=== PATIENT | female | born 1975 | race Caucasian/White ===

== ENCOUNTER 2018-02-07 23:42 | Emergency (ER) | payer OTHER ==
[2018-02-08 00:25] LABS: Basophils # (A) 0.1 k/uL (0-0.2); Basophils % (A) 1 %; Eosinophils # (A) 0.8 k/uL (0-0.7); Eosinophils % (A) 6 %; HCT 40.9 % (34.0-46.0); HGB 12.9 gm/dL (11.4-16.0); Lymphocytes # (A) 3.2 k/uL (1.0-4.8); Lymphocytes % (A) 23 %; MCH 27.2 pg (25.0-35.0); MCHC 31.4 g/dL (31.0-37.0); MCV 86.4 fL (80.0-100.0); Mean Platelet Volume 6.5; Monocytes # (A) 0.5 k/uL (0-1.0); Monocytes % (A) 3 %; Neutrophils # (A) 9.4 k/uL (1.3-7.7); Neutrophils % (A) 67 %; Platelet Count 474 k/uL (150-450); RBC 4.73 m/uL (3.80-5.40); RDW 14.3 % (11.5-15.5)
[2018-02-08 00:35] LABS: ALT 23 U/L (9-52); AST 16 U/L (14-36); Albumin 4.6 g/dL (3.5-5.0); Alkaline Phosphatase 92 U/L (38-126); Amylase 85 U/L (30-110); Anion Gap 10 mmol/L; Blood Urea Nitrogen 11 mg/dL (7-17); Calcium 10.1 mg/dL (8.4-10.2); Carbon Dioxide 32 mmol/L (22-30); Chloride 100 mmol/L (98-107); Glucose 106 mg/dL (74-99); Lipase 117 U/L (23-300); Potassium 3.5 mmol/L (3.5-5.1); Sodium 142 mmol/L (137-145); Total Bilirubin 0.3 mg/dL (0.2-1.3); Total Protein 8.3 g/dL (6.3-8.2)
[2018-02-08 00:36] LABS: Amorphous Sediment,Urine Rare /hpf; Appearance,Urine Cloudy (Clear); Bilirubin,Urine Negative (Negative); Blood,Urine Negative (Negative); Color,Urine Light Yellow; Glucose,Urine (UA) Negative (Negative); Ketones,Urine Negative (Negative); Leukocyte Esterase,Urine Trace (Negative); Mucus,Urine Rare /hpf; Nitrite,Urine Negative (Negative); PH, Urine 7.5 (5.0-8.0); Protein,Urine Negative (Negative); Specific Gravity,Urine 1.007 (1.001-1.035); Squamous Epithelial Cell,Urine 1 /hpf (0-4); Urobilinogen,Urine <2.0 mg/dL (<2.0); WBC,Urine 2 /hpf (0-5)
[2018-02-08] MEDS ORDERED: KETOROLAC 30 MG/ML 1 ML VIAL IVP STA (00:45)
--- NOTE | 2018-02-08 00:48 | ED ---
Abdominal Pain HPI - General Chief Complaint: Abdominal Pain Stated Complaint: Lef side pain Time Seen by Provider: 02/08/18 00:08 Source: patient Mode of arrival: ambulatory Limitations: no limitations - History of Present Illness Initial Comments: This patient is a 42-year-old woman who presents to be evaluate for left-sided abdominal pain. She states this is been going on for many weeks. She states that it did get worse today and that's why she is being evaluated here. She was working at [employer] today and also drank some water and then became nauseated. Patient describes the pain as severe, like someone is in their digging. She has not noted worsening factors other than the water today. She has not noted relieving factors. There has been no change in urination or bowel movements. Her last bowel movement was last night and was normal. Last period was about 2 weeks ago when she states normal. MD Complaint: abdominal pain -: week(s) Location: LUQ, LLQ Radiation: none Migration to: no migration Severity: severe Quality: other (Like someone's in there is digging) Consistency: constant Improves With: nothing Worsens With: nothing Associated Symptoms: nausea - Related Data LMP (females 10-50): last week Patient : No Previous Rx's Medication Instructions Recorded Famotidine [Pepcid] 20 mg PO BID #14 tablet 02/08/18 Allergies Allergy/AdvReac Type Severity Reaction Status Date / Time No Known Allergies Allergy Verified 02/07/18 23:49 Review of Systems ROS Statement: Those systems with pertinent positive or pertinent negative responses have been documented in the HPI. ROS Other: All systems not noted in ROS Statement are negative. Constitutional: Denies: fever, chills Respiratory: Denies: cough, dyspnea Cardiovascular: Denies: chest pain, palpitations Gastrointestinal: Reports: abdominal pain, nausea. Denies: vomiting, diarrhea, constipation Genitourinary: Denies: dysuria, hematuria, abnormal menses Musculoskeletal: Denies: back pain Skin: Denies: rash Neurological: Denies: headache Hematological/Lymphatic: Denies: easy bleeding Past Medical History Past Medical History: Hypertension History of Any Multi-Drug Resistant Organisms: None Reported Past Surgical History: Orthopedic Surgery, Tubal Ligation Past Psychological History: No Psychological Hx Reported Smoking Status: Current every day smoker Past Alcohol Use History: None Reported Past Drug Use History: None Reported General Exam Limitations: no limitations General appearance: alert, in no apparent distress Head exam: Present: atraumatic, normocephalic Eye exam: Present: normal appearance. Absent: scleral icterus, conjunctival injection ENT exam: Present: normal oropharynx Respiratory exam: Present: normal lung sounds bilaterally. Absent: respiratory distress, wheezes, rales, rhonchi, stridor Cardiovascular Exam: Present: regular rate, normal rhythm, normal heart sounds. Absent: systolic murmur, diastolic murmur, rubs, gallop GI/Abdominal exam: Present: soft, tenderness (There is mild left lower quadrant tenderness without rebound or guarding), normal bowel sounds. Absent: distended , guarding, rebound, rigid, mass, pulsatile mass, hernia Extremities exam: Present: normal inspection, normal capillary refill. Absent: pedal edema, calf tenderness Back exam: Present: normal inspection. Absent: CVA tenderness (R), CVA tenderness (L) Neurological exam: Present: alert Skin exam: Present: warm, dry, intact, normal color. Absent: rash Course Vital Signs 02/07/18 02/08/18 23:45 03:38 Temperature 97.7 F 97.8 F Pulse Rate 71 77 Respiratory 20 18 Rate Blood Pressure 206/105 129/76 O2 Sat by Pulse 99 98 Oximetry Medical Decision Making - Medical Decision Making Patient is a 42-year-old woman with abdominal pain, whose workup is negative other than for a mild leukocytosis and small amount of free fluid on the computed tomography scan. The patient however is feeling clinically better. She does not have tenderness on the reevaluation exam. I did discuss appropriate follow-up including repeat abdominal exam and possibly serial labs and imaging if she is not having improvement. Discussed having immediate reevaluation if there is any recurrence of symptoms or she feels worse in anyway. - Lab Data Result diagrams: 02/08/18 00:14 02/08/18 00:14 Lab Results 02/08/18 02/08/18 02/08/18 Range/Units 00:14 00:14 00:14 WBC 14.0 H (3.8-10.6) k/uL RBC 4.73 (3.80-5.40) m/uL Hgb 12.9 (11.4-16.0) gm/dL Hct 40.9 (34.0-46.0) % MCV 86.4 (80.0-100.0) fL MCH 27.2 (25.0-35.0) pg MCHC 31.4 (31.0-37.0) g/dL RDW 14.3 (11.5-15.5) % Plt Count 474 H (150-450) k/uL Neutrophils % 67 % Lymphocytes % 23 % Monocytes % 3 % Eosinophils % 6 % Basophils % 1 % Neutrophils # 9.4 H (1.3-7.7) k/uL Lymphocytes # 3.2 (1.0-4.8) k/uL Monocytes # 0.5 (0-1.0) k/uL Eosinophils # 0.8 H (0-0.7) k/uL Basophils # 0.1 (0-0.2) k/uL Sodium 142 (137-145) mmol/L Potassium 3.5 (3.5-5.1) mmol/L Chloride 100 (98-107) mmol/L Carbon Dioxide 32 H (22-30) mmol/L Anion Gap 10 mmol/L BUN 11 (7-17) mg/dL Creatinine 0.70 (0.52-1.04) mg/dL Est GFR (CKD-EPI)AfAm >90 (>60 ml/min/1.73 sqM) Est GFR (CKD-EPI)NonAf >90 (>60 ml/min/1.73 sqM) Glucose 106 H (74-99) mg/dL Calcium 10.1 (8.4-10.2) mg/dL Total Bilirubin 0.3 (0.2-1.3) mg/dL AST 16 (14-36) U/L ALT 23 (9-52) U/L Alkaline Phosphatase 92 (38-126) U/L Troponin I (0.000-0.034) ng/mL Total Protein 8.3 H (6.3-8.2) g/dL Albumin 4.6 (3.5-5.0) g/dL Amylase 85 (30-110) U/L Lipase 117 (23-300) U/L Urine Color Urine Appearance (Clear) Urine pH (5.0-8.0) Ur Specific [place] (1.001-1.035) Urine Protein (Negative) Urine Glucose (UA) (Negative) Urine Ketones (Negative) Urine Blood (Negative) Urine Nitrite (Negative) Urine Bilirubin (Negative) Urine Urobilinogen (<2.0) mg/dL Ur Leukocyte Esterase (Negative) Urine WBC (0-5) /hpf Ur Squamous Epith Cells (0-4) /hpf Amorphous Sediment (None) /hpf Urine Mucus (None) /hpf Urine HCG, Qual Not Detected (Not Detectd) 02/08/18 02/08/18 Range/Units 00:14 00:14 WBC (3.8-10.6) k/uL RBC (3.80-5.40) m/uL Hgb (11.4-16.0) gm/dL Hct (34.0-46.0) % MCV (80.0-100.0) fL MCH (25.0-35.0) pg MCHC (31.0-37.0) g/dL RDW (11.5-15.5) % Plt Count (150-450) k/uL Neutrophils % % Lymphocytes % % Monocytes % % Eosinophils % % Basophils % % Neutrophils # (1.3-7.7) k/uL Lymphocytes # (1.0-4.8) k/uL Monocytes # (0-1.0) k/uL Eosinophils # (0-0.7) k/uL Basophils # (0-0.2) k/uL Sodium (137-145) mmol/L Potassium (3.5-5.1) mmol/L Chloride (98-107) mmol/L Carbon Dioxide (22-30) mmol/L Anion Gap mmol/L BUN (7-17) mg/dL Creatinine (0.52-1.04) mg/dL Est GFR (CKD-EPI)AfAm (>60 ml/min/1.73 sqM) Est GFR (CKD-EPI)NonAf (>60 ml/min/1.73 sqM) Glucose (74-99) mg/dL Calcium (8.4-10.2) mg/dL Total Bilirubin (0.2-1.3) mg/dL AST (14-36) U/L ALT (9-52) U/L Alkaline Phosphatase (38-126) U/L Troponin I <0.012 (0.000-0.034) ng/mL Total Protein (6.3-8.2) g/dL Albumin (3.5-5.0) g/dL Amylase (30-110) U/L Lipase (23-300) U/L Urine Color Light Yellow Urine Appearance Cloudy H (Clear) Urine pH 7.5 (5.0-8.0) Ur Specific [place] 1.007 (1.001-1.035) Urine Protein Negative (Negative) Urine Glucose (UA) Negative (Negative) Urine Ketones Negative (Negative) Urine Blood Negative (Negative) Urine Nitrite Negative (Negative) Urine Bilirubin Negative (Negative) Urine Urobilinogen <2.0 (<2.0) mg/dL Ur Leukocyte Esterase Trace H (Negative) Urine WBC 2 (0-5) /hpf Ur Squamous Epith Cells 1 (0-4) /hpf Amorphous Sediment Rare H (None) /hpf Urine Mucus Rare H (None) /hpf Urine HCG, Qual (Not Detectd) Disposition Clinical Impression: Abdominal pain Disposition: HOME SELF-CARE Condition: Good Instructions: Abdominal Pain (ED) Prescriptions: Famotidine [Pepcid] 20 mg PO BID #14 tablet Is patient prescribed a controlled substance at d/c from ED?: No Referrals: Samanta Russo MD [Primary Care Provider] - 1-2 days Aaron Coulter MD [STAFF PHYSICIAN] - 1-2 days
--- NOTE | 2018-02-08 00:48 | XR ---
EXAMINATION TYPE: XR KUB DATE OF EXAM: 02/08/2018 COMPARISON: NONE HISTORY: Abdominal pain TECHNIQUE: 2 views upright FINDINGS: Bowel gas pattern is normal. There is no sign of intestinal obstruction or pneumoperitoneum . Fecal pattern is normal. There are no pathologic calcifications over the kidneys. Lung bases are cl ear. IMPRESSION: Nonacute abdomen.
[2018-02-08] MEDS ORDERED: ONDANSETRON 4 MG/2 ML VIAL IVP STA (00:59)
--- NOTE | 2018-02-08 01:20 | CT ---
EXAMINATION TYPE: CT abdomen pelvis wo con DATE OF EXAM: 02/08/2018 COMPARISON: None HISTORY: Left side abdominal pain CT DLP: 616 mGycm Automated exposure control for dose reduction was used. TECHNIQUE: Helical acquisition of images was performed from the lung bases through the pelvis. FINDINGS: Lung bases are clear. There is no pleural effusion. Heart size is normal. Liver spleen pancreas gallbladder appear normal. Bile ducts are not dilated. There is no adrenal mass. Stomach is large. Kidneys show normal size and contour. There is no hydrone phrosis. There is no retroperitoneal adenopathy. There is small amount of free fluid in the [place]. Uterus is large with multiple fibroids. Urinary bladder appears normal. I see no intestinal wall t hickening. There are no dilated loops. There is some retained fecal material in the right colon. Bony structures appear intact. IMPRESSION: MILD CONSTIPATION. NO RENAL STONE OR OBSTRUCTION. APPENDIX IS NOT SEEN. NO SIGN OF APPENDICITIS. MILD FREE FLUID IN THE PELVIS. ENLARGED FIBROID UTERUS. Large stomach could relate to gastroparesis.
[2018-02-08] MEDS ORDERED: MAG HYDROX/AL HYDROX/SIMETH 30 ML, HYOSCYAMINE ELIXIR 10 ML, CIMETIDINE HCL 300 MG, LID... PO STA ×4 (01:35)
[2018-02-08 03:39] VITALS: BP 129/76; PULSE 77; RESP 18; TEMP 97.8
== END 2018-02-08 04:00 | disposition home or self-care (01) ==
LOC: EC 23:42
DX: R10.12 Left upper quadrant pain (principal); R10.32 Left lower quadrant pain; R11.0 Nausea; D72.829 Elevated white blood cell count, unspecified; F17.200 Nicotine dependence, unspecified, uncomplicated; Z98.51 Tubal ligation status
CPT/HCPCS: 99284; 96374; 96375; 36415; 93005; 80053; 82150; 83690; 84484; 85025; 81001; 81025; 74018; 74176; J2405; J1885

== ENCOUNTER 2023-07-23 19:01 | Emergency (ER) | payer OTHER ==
--- NOTE | 2023-07-23 19:21 | ED ---
Skin/Abscess/FB HPI - General Chief complaint: Skin/Abscess/Foreign Body Stated complaint: Abcess R side of neck Time Seen by Provider: 07/23/23 19:19 Source: patient, family, RN notes reviewed Mode of arrival: ambulatory Limitations: no limitations - History of Present Illness Initial comments: Patient is a 48-year-old female presenting to the ER with a chief complaint of an abscess. Patient states she has had an abscess on her right shoulder for about 3 days. She denies any drainage. Denies any fevers, chills, night sweats. Patient states that his painful to touch and has been keeping it covered with a Band-Aid. Denies any chest pain, shortness of breath, abdominal pain, urinary symptoms, peripheral edema. - Related Data Previous Rx's Medication Instructions Recorded Famotidine [Pepcid] 20 mg PO BID #14 tablet 02/08/18 Cephalexin [Keflex] 500 mg PO Q6HR #40 cap 07/23/23 Sulfamethox-Tmp 800-160Mg [Bactrim 1 each PO Q12HR #20 tab 07/23/23 Ds] Allergies Allergy/AdvReac Type Severity Reaction Status Date / Time No Known Allergies Allergy Verified 02/07/18 23:49 Review of Systems ROS Statement: Those systems with pertinent positive or pertinent negative responses have been documented in the HPI. ROS Other: All systems not noted in ROS Statement are negative. Past Medical History Past Medical History: Hypertension History of Any Multi-Drug Resistant Organisms: None Reported Past Surgical History: Orthopedic Surgery, Tubal Ligation Past Psychological History: No Psychological Hx Reported Smoking Status: Current every day smoker Past Alcohol Use History: None Reported Past Drug Use History: None Reported General Exam Limitations: no limitations General appearance: alert, in no apparent distress Head exam: Present: atraumatic, normocephalic, normal inspection Eye exam: Present: normal appearance, PERRL, EOMI. Absent: scleral icterus, conjunctival injection, periorbital swelling Neck exam: Present: normal inspection. Absent: tenderness, meningismus, lymphadenopathy Respiratory exam: Present: normal lung sounds bilaterally. Absent: respiratory distress, wheezes, rales, rhonchi, stridor Cardiovascular Exam: Present: regular rate, normal rhythm, normal heart sounds. Absent: systolic murmur, diastolic murmur, rubs, gallop, clicks Neurological exam: Present: alert, oriented X3, CN II-XII intact Psychiatric exam: Present: normal affect, normal mood Skin exam: Present: warm, dry, intact, normal color, other (Fluctuant area with surrounding erythema to right trapezius muscle/shoulder. No purulent drainage present.). Absent: rash Course Vital Signs 07/23/23 19:03 Temperature 98.2 F Pulse Rate 96 Respiratory 16 Rate Blood Pressure 175/108 O2 Sat by Pulse 99 Oximetry Procedures - Incision & Drainage Consent Obtained: verbal consent Indication: abscess Site: back Anesthetic Used: lidocaine 1% Amount (mLs): 5 I&D Cleaning Method: Alcohol Wipe Sterile Field Used?: Yes Scalpel Used: #11 Ultrasound used: No Needle Aspiration Performed?: No I&D Drainage Obtained: Pus, Blood Loculation Noted: probing needed to break Insertion of drain: No Culture Obtained?: Yes Patient Tolerated Procedure: well, no complications Medical Decision Making - Medical Decision Making Was pt. sent in by a medical professional or institution (ELVI Hardwick, FACTORY MAINTENANCE TECHNICIAN, urgent care, hospital, or fpc...) When possible be specific @ -No Did you speak to anyone other than the patient for history (EMS, parent, family, police, friend...)? What history was obtained from this source @ -No Did you review nursing and triage notes (agree or disagree)? Why? @ -I reviewed and agree with nursing and triage notes Were old charts reviewed (outside hosp., previous admission, EMS record, old EKG, old radiological studies, urgent care reports/EKG's, fpc records)? Report findings @ -No old charts were reviewed Differential Diagnosis (chest pain, altered mental status, abdominal pain women, abdominal pain men, vaginal bleeding, weakness, fever, dyspnea, syncope, headache, dizziness, GI bleed, back pain, seizure, CVA, palpatations, mental health, musculoskeletal)? @ -Cellulitis, abscess, abrasion, cyst, acne this list is not meant to be all- inclusive EKG interpreted by me (3pts min.). @ -None X-rays interpreted by me (1pt min.). @ -None done CT interpreted by me (1pt min.). @ -None done U/S interpreted by me (1pt. min.). @ -None done What testing was considered but not performed or refused? (CT, X-rays, U/S, labs)? Why? @ -None What meds were considered but not given or refused? Why? @ -None Did you discuss the management of the patient with other professionals (professionals i.e. , PA, FACTORY MAINTENANCE TECHNICIAN, lab, RT, psych nurse, older adult social work specialist, teacher visually impaired, teacher, chairman and chief executive officer, briefcase sewer)? Give summary @ -No Was smoking cessation discussed for >3mins.? @ -No Was critical care preformed (if so, how long)? @ -No Were there social determinants of health that impacted care today? How? (Homelessness, low income, unemployed, alcoholism, drug addiction, transportatio n, low edu. Level, literacy, decrease access to med. care, penitentiary, rehab)? @ -No Was there de-escalation of care discussed even if they declined (Discuss DNR or withdrawal of care, Hospice)? DNR status @ -No What co-morbidities impacted this encounter? (DM, HTN, Smoking, COPD, CAD, Cancer, CVA, ARF, Chemo, Hep., AIDS, mental health diagnosis, sleep apnea, morbid obesity)? @ -None Was patient admitted / discharged? Hospital course, mention meds given and route, prescriptions, significant lab abnormalities, going to OR and other pertinent info. @ -Discharge. Patient is a 48-year-old female presenting to the ER with chief complaint of back abscess. Denies any fevers or chills. History and physical exam were completed. Vitals stable. There is a 5 cm fluctuant abscess on patient's back. No signs of acute distress lung sounds clear to auscultation bilaterally. Abscess was numbed using lidocaine and a drainage hole was made using an 11 blade scalpel. Bloody and purulent drainage from abscess. Patient tolerated procedure well. Patient prescribed Bactrim and Keflex. Educated patient on importance of completing full course of antibiotics. Return parameters were discussed. Patient be discharged stable condition follow-up to PCP. Patient expressed understanding and agreement care plan. Undiagnosed new problem with uncertain prognosis? @ -No Drug Therapy requiring intensive monitoring for toxicity (Heparin, Nitro, Insulin, Cardizem)? @ -No Were any procedures done? @ -Yes Diagnosis/symptom? @ -Abscess Acute, or Chronic, or Acute on Chronic? @ -Acute Uncomplicated (without systemic symptoms) or Complicated (systemic symptoms)? @ -uncomplicated Side effects of treatment? @ -No Exacerbation, Progression, or Severe Exacerbation? @ -No Poses a threat to life or bodily function? How? (Chest pain, [place], [place], pneumonia, PE, COPD, DKA, ARF, appy, cholecystitis, CVA, Diverticulitis, Homicidal, Suicidal, threat to staff... and all critical care pts) @ -No Disposition Clinical Impression: Abscess Disposition: HOME SELF-CARE Condition: Stable Instructions (If sedation given, give patient instructions): Abscess Incision and Drainage (ED), Abscess (ED) Additional Instructions: Please complete full course of antibiotics. Follow-up with PCP. Return to ER for new or worsening symptoms. Prescriptions: Sulfamethox-Tmp 800-160Mg [Bactrim Ds] 1 each PO Q12HR #20 tab Cephalexin [Keflex] 500 mg PO Q6HR #40 cap Is patient prescribed a controlled substance at d/c from ED?: No Referrals: Samanta Coelho MD [Primary Care Provider] - 1-2 days Time of Disposition: 20:16
[2023-07-23 19:29] VITALS: BP 175/108; PULSE 96; RESP 16; TEMP 98.2
[2023-07-23] MEDS: LIDOCAINE 1% INJ 10MG/ML (20 ML MDV) SQ ONE (19:38)
== END 2023-07-23 20:30 | disposition home or self-care (01) ==
LOC: EC 19:01
DX: L02.212 Cutaneous abscess of back [any part, except buttock and flank] (principal); I10 Essential (primary) hypertension; F17.200 Nicotine dependence, unspecified, uncomplicated
CPT/HCPCS: 87070; 87205; 10060; 99282; J2001

== ENCOUNTER 2023-09-14 02:07 | Emergency (ER) | payer OTHER ==
[2023-09-14 02:35] VITALS: RESP 18
[2023-09-14] MEDS: ONDANSETRON 4 MG/2 ML VIAL IVP STA (02:56)
[2023-09-14] MEDS: KETOROLAC 15 MG/ML 1 ML VIAL IVP STA (02:57)
[2023-09-14] MEDS: SODIUM CHLORIDE 0.9% 1,000 ML IV STA (03:02)
[2023-09-14 03:27] LABS: ALT 16 U/L (4-34); AST 23 U/L (14-36); African American GFR (CKD) >90 (>60 ml/min/1.73 sqM); Albumin 4.7 g/dL (3.5-5.0); Alkaline Phosphatase 108 U/L (38-126); Amylase 80 U/L (30-110); Anion Gap 13 mmol/L; Blood Urea Nitrogen 13 mg/dL (7-17); Calcium 9.3 mg/dL (8.4-10.2); Carbon Dioxide 19 mmol/L (22-30); Chloride 108 mmol/L (98-107); Glucose 108 mg/dL (74-99); Lipase 107 U/L (23-300); Non-African American GFR(CKD) >90 (>60 ml/min/1.73 sqM); Potassium 3.9 mmol/L (3.5-5.1); Sodium 140 mmol/L (137-145); Total Bilirubin 0.4 mg/dL (0.2-1.3); Total Protein 8.2 g/dL (6.3-8.2)
--- NOTE | 2023-09-14 03:45 | ED ---
Abdominal Pain HPI - General Source: patient Mode of arrival: wheelchair Limitations: no limitations <Franklin Lund - Last Filed: 09/14/23 04:11> <Maria Dolores Rojas - Last Filed: 09/14/23 08:28> - General Chief Complaint: Abdominal Pain Stated Complaint: abd pain Time Seen by Provider: 09/14/23 02:21 - History of Present Illness Initial Comments: 48-year-old female presenting to the ED with complaints of flank pain. Patient states all day her right flank has been hurting however tonight woke up with left flank pain. Does note some associated nausea with this. Denies dysuria, hematuria, frequency, urgency. Denies changes in bowel habits. No fever or chills. No chest pains or shortness of breath. No other complaints at this time. (Franklin Lund) - Related Data Previous Rx's Medication Instructions Recorded Famotidine [Pepcid] 20 mg PO BID #14 tablet 02/08/18 Cephalexin [Keflex] 500 mg PO Q6HR #40 cap 07/23/23 Sulfamethox-Tmp 800-160Mg [Bactrim 1 each PO Q12HR #20 tab 07/23/23 Ds] HYDROcodone/APAP 5-325MG [[place] 1 tab PO Q6HR PRN 3 Days #12 tab 09/14/23 5-325] Ondansetron Odt [Zofran Odt] 4 mg PO Q8HR PRN #12 tab 09/14/23 Tamsulosin [Flomax] 0.4 mg PO DAILY 7 Days #7 cap 09/14/23 Allergies Allergy/AdvReac Type Severity Reaction Status Date / Time No Known Allergies Allergy Verified 09/14/23 02:09 Review of Systems ROS Other: All systems not noted in ROS Statement are negative. <Franklin Lund - Last Filed: 09/14/23 04:11> ROS Other: All systems not noted in ROS Statement are negative. <Maria Dolores Rojas - Last Filed: 09/14/23 08:28> ROS Statement: Those systems with pertinent positive or pertinent negative responses have been documented in the HPI. Past Medical History Past Medical History: Hypertension History of Any Multi-Drug Resistant Organisms: ESBL, MRSA Date of last positivie culture/infection: 07/23/23 MRSA & ESBL MDRO Source:: Right Shoulder Past Surgical History: Orthopedic Surgery, Tubal Ligation Past Psychological History: No Psychological Hx Reported Smoking Status: Current every day smoker Past Alcohol Use History: None Reported Past Drug Use History: Marijuana <KeovnFranklin - Last Filed: 09/14/23 04:11> General Exam Limitations: no limitations General appearance: alert, in no apparent distress Neck exam: Present: normal inspection Respiratory exam: Present: normal lung sounds bilaterally Cardiovascular Exam: Present: regular rate, normal rhythm GI/Abdominal exam: Present: soft, normal bowel sounds, other (No CVA tenderness palpation bilaterally. Does note some pain of the lower lumbar paraspinal area.). Absent: distended, tenderness, guarding, rebound, rigid Neurological exam: Present: alert, oriented X3 Skin exam: Present: warm, dry <Franklin Lund - Last Filed: 09/14/23 04:11> Course Vital Signs 09/14/23 09/14/23 02:08 04:03 Temperature 97.4 F L Pulse Rate 68 98 Respiratory 18 18 Rate Blood Pressure 218/121 149/87 O2 Sat by Pulse 100 99 Oximetry Medical Decision Making - Lab Data Result diagrams: 09/14/23 03:01 <Franklin Lund - Last Filed: 09/14/23 04:11> - Lab Data Result diagrams: 09/14/23 03:01 09/14/23 03:01 <Maria Dolores Rojas - Last Filed: 09/14/23 08:28> - Medical Decision Making Was pt. sent in by a medical professional or institution ([facility], ENGRAVER MACHINE, urgent care, hospital, or intermediate...) When possible be specific @ -No Did you speak to anyone other than the patient for history (EMS, parent, family, police, friend...)? What history was obtained from this source @ -No Did you review nursing and triage notes (agree or disagree)? Why? @ -I reviewed and agree with nursing and triage notes Were old charts reviewed (outside hosp., previous admission, EMS record, old EKG, old radiological studies, urgent care reports/EKG's, intermediate records)? Report findings @ -No old charts were reviewed Differential Diagnosis (chest pain, altered mental status, abdominal pain women, abdominal pain men, vaginal bleeding, weakness, fever, dyspnea, syncope, headache, dizziness, GI bleed, back pain, seizure, CVA, palpatations, mental health, musculoskeletal)? @ -Differential Abdominal Pain Women: Appendicitis, Cholecystitis, diverticulosis, ischemic bowel, pancreatitis, hepatitis, UTI, gastroenteritis, AAA, incarcerated hernia, bowel obstruction, constipation, inflammatory bowel, hepatitis, peptic ulcer disease, splenic infarction, perforated viscus, vulvitis, ovarian torsion, PID, kidney stone, placenta abruption, this is not meant to be an all-inclusive list EKG interpreted by me (3pts min.). @ -None X-rays interpreted by me (1pt min.). @ -None done CT interpreted by me (1pt min.). @ -Pending U/S interpreted by me (1pt. min.). @ -None done What testing was considered but not performed or refused? (CT, X-rays, U/S, labs)? Why? @ -None What meds were considered but not given or refused? Why? @ -None Did you discuss the management of the patient with other professionals (professionals i.e. , PA, ENGRAVER MACHINE, lab, RT, psych nurse, social science instructor, skip loader, teacher, chief clinical officer, medical case manager)? Give summary @ -No Was smoking cessation discussed for >3mins.? @ -No Was critical care preformed (if so, how long)? @ -No Were there social determinants of health that impacted care today? How? (Homelessness, low income, unemployed, alcoholism, drug addiction, transportation, low edu. Level, literacy, decrease access to med. care, assisted, rehab)? @ -No Was there de-escalation of care discussed even if they declined (Discuss DNR or withdrawal of care, Hospice)? DNR status @ -No What co-morbidities impacted this encounter? (DM, HTN, Smoking, COPD, CAD, Cancer, CVA, ARF, Chemo, Hep., AIDS, mental health diagnosis, sleep apnea, mo rbid obesity)? @ -None Was patient admitted / discharged? Hospital course, mention meds given and r oute, prescriptions, significant lab abnormalities, going to OR and other pertinent info. @ -Pending Patient presented to the ED with complaints of flank pain. Patient states that she has had ongoing pain on the right side of her abdomen/back however tonight woke up with acute onsets of left sided abdominal/back pain with associated nausea. At this time laboratory studies and imaging are pending and case signed out to my attending physician, Dr. Rojas, for further disposition. (Franklin Lund) Was patient admitted / discharged? Hospital course, mention meds given and route, prescriptions, significant lab abnormalities, going to OR and other pertinent info. @ -Care was signed out to me by Morgan CT was pending. Patient presented with flank pain CT does reveal a 7 mm x 4 mm x 6 mm stone. Patient had been treated with Toradol and was given a single dose of morphine and upon reevaluation she is resting comfortably. I discussed this position options including observation for intractable pain versus discharge home. Patient would prefer discharge home. She will be prescribed Zofran Flomax and [place] for symptom management. Undiagnosed new problem with uncertain prognosis? @ -No Drug Therapy requiring intensive monitoring for toxicity (Heparin, Nitro, Insulin, Cardizem)? @ -No Were any procedures done? @ -No Diagnosis/symptom? @ -Kidney stone Acute, or Chronic, or Acute on Chronic? @ -Acute Uncomplicated (without systemic symptoms) or Complicated (systemic symptoms)? @ -Default Side effects of treatment? @ -No Exacerbation, Progression, or Severe Exacerbation? @ -No Poses a threat to life or bodily function? How? (Chest pain, [place], [place], pneumonia, PE, COPD, DKA, ARF, appy, cholecystitis, CVA, Diverticulitis, Homicidal, Suici evelin, threat to staff... and all critical care pts) @ -No (Maria Dolores Rojas) - Lab Data Lab Results 09/14/23 09/14/23 09/14/23 Range/Units 03:01 03:01 06:25 WBC 14.4 H (3.8-10.6) k/uL RBC 5.19 (3.80-5.40) m/uL Hgb 13.1 (11.4-16.0) gm/dL Hct 43.0 (34.0-46.0) % MCV 82.9 (80.0-100.0) fL MCH 25.3 (25.0-35.0) pg MCHC 30.5 L (31.0-37.0) g/dL RDW 16.5 H (11.5-15.5) % Plt Count 372 (150-450) k/uL MPV 8.9 Neutrophils % 71 % Lymphocytes % 20 % Monocytes % 5 % Eosinophils % 2 % Basophils % 1 % Neutrophils # 10.3 H (1.3-7.7) k/uL Lymphocytes # 2.9 (1.0-4.8) k/uL Monocytes # 0.7 (0-1.0) k/uL Eosinophils # 0.3 (0-0.7) k/uL Basophils # 0.1 (0-0.2) k/uL Hypochromasia Moderate Anisocytosis Slight Sodium 140 (137-145) mmol/L Potassium 3.9 (3.5-5.1) mmol/L Chloride 108 H (98-107) mmol/L Carbon Dioxide 19 L (22-30) mmol/L Anion Gap 13 mmol/L BUN 13 (7-17) mg/dL Creatinine 0.72 (0.52-1.04) mg/dL Est GFR (CKD-EPI)AfAm >90 (>60 ml/min/1.73 sqM) Est GFR (CKD-EPI)NonAf >90 (>60 ml/min/1.73 sqM) Glucose 108 H (74-99) mg/dL Calcium 9.3 (8.4-10.2) mg/dL Total Bilirubin 0.4 (0.2-1.3) mg/dL AST 23 (14-36) U/L ALT 16 (4-34) U/L Alkaline Phosphatase 108 (38-126) U/L Total Protein 8.2 (6.3-8.2) g/dL Albumin 4.7 (3.5-5.0) g/dL Amylase 80 (30-110) U/L Lipase 107 (23-300) U/L Urine Color Colorless Urine Appearance Clear (Clear) Urine pH 7.0 (5.0-8.0) Ur Specific [place] 1.009 (1.001-1.035) Urine Protein Negative (Negative) Urine Glucose (UA) Negative (Negative) Urine Ketones Negative (Negative) Urine Blood Small H (Negative) Urine Nitrite Negative (Negative) Urine Bilirubin Negative (Negative) Urine Urobilinogen <2.0 (<2.0) mg/dL Ur Leukocyte Esterase Moderate H (Negative) Urine RBC 28 H (0-5) /hpf Urine WBC 16 H (0-5) /hpf Ur Squamous Epith Cells 5 H (0-4) /hpf Amorphous Sediment Rare H (None) /hpf Urine Bacteria Occasional H (None) /hpf Disposition <Franklin Lund - Last Filed: 09/14/23 04:11> Is patient prescribed a controlled substance at d/c from ED?: No <Maria Dolores Rojas - Last Filed: 09/14/23 08:28> Clinical Impression: Kidney stone Disposition: HOME SELF-CARE Condition: Stable Prescriptions: Tamsulosin [Flomax] 0.4 mg PO DAILY 7 Days #7 cap HYDROcodone/APAP 5-325MG [[place] 5-325] 1 tab PO Q6HR PRN 3 Days #12 tab PRN Reason: Pain Ondansetron Odt [Zofran Odt] 4 mg PO Q8HR PRN #12 tab PRN Reason: Nausea Referrals: Samanta Coelho MD [Primary Care Provider] - 1-2 days
[2023-09-14 04:38] LABS: Anisocytosis Slight; Basophils # (A) 0.1 k/uL (0-0.2); Basophils % (A) 1 %; Eosinophils # (A) 0.3 k/uL (0-0.7); Eosinophils % (A) 2 %; HGB 13.1 gm/dL (11.4-16.0); Hypochromasia Moderate; Lymphocytes # (A) 2.9 k/uL (1.0-4.8); Lymphocytes % (A) 20 %; MCH 25.3 pg (25.0-35.0); MCHC 30.5 g/dL (31.0-37.0); MCV 82.9 fL (80.0-100.0); Mean Platelet Volume 8.9; Monocytes # (A) 0.7 k/uL (0-1.0); Monocytes % (A) 5 %; Neutrophils # (A) 10.3 k/uL (1.3-7.7); Neutrophils % (A) 71 %; Platelet Count 372 k/uL (150-450); RBC 5.19 m/uL (3.80-5.40); RDW 16.5 % (11.5-15.5); WBC 14.4 k/uL (3.8-10.6)
--- NOTE | 2023-09-14 05:19 | CT ---
EXAM: CT Abdomen and Pelvis Without Intravenous Contrast CLINICAL HISTORY: ITS.REASON CT Reason: flank pain r/o stone TECHNIQUE: Axial computed tomography images of the abdomen and pelvis without intravenous contrast. CTDI is 13.8 mGy and DLP is 785.9 mGy-cm. This CT exam was performed using one or more of the following dose reduction techniques: automated exposure control, adjustment of the mA and/or kV according to patient size, and/or use of iterative reconstruction technique. COMPARISON: No relevant prior studies available. FINDINGS: Limitations: Limited evaluation in the absence of contrast. Lung bases: Unremarkable. No mass. No consolidation. ABDOMEN: Liver: Unremarkable. Gallbladder and bile ducts: Unremarkable. No calcified stones. No ductal dilation. Pancreas: Unremarkable. No ductal dilation. Spleen: Unremarkable. No splenomegaly. Adrenals: Unremarkable. No mass. Kidneys and ureters: Obstructive 7 x 4 x 6 mm calculus within the left ureteropelvic junction (not noted on curriculum writer imaging) with upstream mild left renal hydronephrosis with perinephric and periureteral stranding. Stomach and bowel: No evidence of bowel obstruction. No mucosal thickening. PELVIS: Appendix: Normal appendix. Bladder: Unremarkable. No stones. Reproductive: Multi fibroid uterus with multiple calcified fibroids. ABDOMEN and PELVIS: Intraperitoneal space: Unremarkable. No free air. No significant fluid collection. Bones/joints: Degenerative changes in the spine. No acute fracture. No dislocation. Soft tissues: Umbilical hernia containing fat. Vasculature: Unremarkable. No abdominal aortic aneurysm. Lymph nodes: Unremarkable. No enlarged lymph nodes. IMPRESSION: 1. Obstructive 7 x 4 x 6 mm calculus within the left ureteropelvic junction (not noted on curriculum writer imaging) with upstream mild left renal hydronephrosis with perinephric and periureteral stranding. 2. No other acute findings. 3. Incidental findings as described.
[2023-09-14 06:46] LABS: Amorphous Sediment,Urine Rare /hpf; Appearance,Urine Clear (Clear); Bacteria,Urine Occasional /hpf; Bilirubin,Urine Negative (Negative); Blood,Urine Small (Negative); Color,Urine Colorless; Glucose,Urine (UA) Negative (Negative); Ketones,Urine Negative (Negative); Leukocyte Esterase,Urine Moderate (Negative); Nitrite,Urine Negative (Negative); Protein,Urine Negative (Negative); RBC,Urine 28 /hpf (0-5); Specific Gravity,Urine 1.009 (1.001-1.035); Squamous Epithelial Cell,Urine 5 /hpf (0-4); Urobilinogen,Urine <2.0 mg/dL (<2.0); WBC,Urine 16 /hpf (0-5)
[2023-09-14] MEDS: MORPHINE SULFATE 4 MG/ML SYRINGE IVP STA (07:40)
[2023-09-14] MEDS: ENALAPRILAT 1.25 MG/ML 1 ML VIAL IVP STA (08:50)
[2023-09-14 08:57] VITALS: TEMP 98
[2023-09-14 09:39] VITALS: BP 166/108; PULSE 102
== END 2023-09-14 09:22 | disposition home or self-care (01) ==
LOC: EC 02:07
DX: N13.2 Hydronephrosis with renal and ureteral calculous obstruction (principal); F17.200 Nicotine dependence, unspecified, uncomplicated
CPT/HCPCS: 36415; 80053; 82150; 83690; 85025; 81001; 74176; 99284; 96374; 96375 ×3; 96361 ×5; J2270; J2405; J1885